=== PATIENT | female | born 1965 | race Caucasian/White ===

== ENCOUNTER → 2022-05-26 09:38 | Outpatient (CLI) | payer OTHER, SELFPAY ==
[2022-05-26 11:11] LABS: Alkaline Phosphatase 48 U/L (38-126)
== END ==
PROVIDERS: Referring Provider Dentist Oral and Maxillofacial Surgery; Visit Provider Dentist Oral and Maxillofacial Surgery
DX: M27.2 Inflammatory conditions of jaws (principal)
CPT/HCPCS: 36415; 84075

== ENCOUNTER → 2023-03-11 09:38 | Outpatient (CLI) | payer OTHER, SELFPAY ==
[2023-03-11 19:48] LABS: Add Manual Diff / Slide Review NO; Basophils Absolute Auto 0 /uL (0-100); Basophils Percent Auto 0.9 % (0-2); Eosinophils Absolute Auto 400 /uL (0-450); Eosinophils Percent Auto 6.5 % (2-4); Hematocrit 39.9 % (36-46); Hemoglobin 13.7 g/dL (12.0-16.0); Lymphocytes Absolute Auto 1900 /uL (1100-4500); Lymphocytes Percent Auto 34.7 % (25-40); Mean Corpuscular HGB Conc 34.2 % (30-36); Mean Corpuscular Hemoglobin 30.2 PG (26-34); Mean Corpuscular Volume 88.1 fL (80-100); Monocytes Absolute Auto 600 /uL (0-900); Monocytes Percent Auto 11.6 % (3-14); Neutrophils Absolute Auto 2600 /uL (1500-7000); Neutrophils Percent Auto 46.3 % (50-75); Platelet Count 275 X10^3/uL (150-400); Red Blood Cell Count 4.53 X10^6/uL (4.0-5.2); Red Cell Distribution Width 12.8 % (11.6-14.8); White Blood Cell Count 5.5 X10^3/uL (4.5-11.0)
[2023-03-11 20:03] LABS: Alanine Aminotransferase 24 IU/L (<35); Albumin 4.3 g/dL (3.5-5.0); Albumin Globulin Ratio 1.4 (1.0-2.8); Alkaline Phosphatase 57 U/L (38-126); Aspartate Aminotransferase 33 IU/L (14-36); BUN Creatinine Ratio 22.4 (6-22); Bilirubin Total 0.4 mg/dL (0.2-1.3); Blood Urea Nitrogen 15 mg/dL (7-17); Calcium 9.3 mg/dL (8.4-10.2); Carbon Dioxide 33 mmol/L (22-32); Chloride 100 mmol/L (98-107); Cholesterol 211 mg/dL (140-199); Estimated Glomerular Filt Rate > 60 mL/min (>60); Glucose 84 mg/dL (70-100); HDL Cholesterol 51 mg/dL (40-60); HEMOLYSIS < 15 (0-50); LDL Cholesterol Calculated 134 mg/dL (<100); Potassium 4.4 mmol/L (3.4-5.1); Sodium 139 mmol/L (137-145); Total Protein 7.3 g/dL (6.3-8.2); Triglycerides 131 mg/dL (35-150)
[2023-03-11 20:28] LABS: TSH w/ Reflex to FT4 3.07 uIU/mL (0.47-4.68)
[2023-03-11 20:36] LABS: Erythrocyte Sedimentation Rate 16 MM/HR (0-20)
== END ==
PROVIDERS: PCP Nurse Practitioner Adult Health; Visit Provider Physician Assistant
DX: H57.9 Unspecified disorder of eye and adnexa (principal); M27.9 Disease of jaws, unspecified; Z13.6 Encounter for screening for cardiovascular disorders
CPT/HCPCS: 80053; 80061; 84443; 85025; 85651